=== PATIENT | male | born 2000 | race Caucasian/White ===

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

== ENCOUNTER → 2018-01-25 | Outpatient (CLI) | payer OTHER ==
[~2018-01-25] MED LIST changes: -GADAVIST IV PRN; -OMEG10007 PO; -OXYC-57 PO
== END ==
LOC: C.RDSM 18:58
PROVIDERS: ATTEND Physical Medicine & Rehabilitation Sports Medicine
DX: M25.562 Pain in left knee (principal); M54.9 Dorsalgia, unspecified

== ENCOUNTER → 2018-05-03 | Outpatient (CLI) | payer OTHER | END | disposition home or self-care (01) | LOC: C.RDSM 10:40 | PROVIDERS: ATTEND Physical Medicine & Rehabilitation Sports Medicine | DX: M25.862 Other specified joint disorders, left knee (principal) ==